=== PATIENT | female | born 1965 | race Caucasian/White ===

== ENCOUNTER → 2020-11-07 | Outpatient (CLI) | payer OTHER ==
[~2020-11-07] MED LIST: CALCIUM ACETAT667 MG; CHOL10002; CRINONE1.125 GM; Dhea Tablet1 EACH PO; FISH1000; MAGOXI400; Multiple Vitam1 EAC1; PHYTOMULTI TAB1 EACH; PROBIOTIC1 EAC1; Premarin0.3 MG; Synthroid25 MCG PO; THYR60 PO; Vitamin B Comple1 EA; Vitamin E100 UNIT
== END | disposition home or self-care (01) ==
LOC: LAB 17:00 → LAB SHORT 17:00
DX: R30.0 Dysuria (principal)
CPT/HCPCS: 87077; 87086; 87186

== ENCOUNTER 2022-03-03 12:22 | Day surgery (SDC) | payer OTHER ==
[~2022-03-03] VITALS: Ht 157.5 cm; Wt 65.2 kg
== END 2022-03-03 14:35 | disposition home or self-care (01) ==
LOC: ORSCSDS 12:22
PROVIDERS: Surgery
PROC: 0DBN8ZX Excision of Sigmoid Colon, Via Natural or Artificial Opening Endoscopic, Diagnostic (ICD-10-PCS; principal; 2022-03-03 13:30)
DX: Z12.11 Encounter for screening for malignant neoplasm of colon (principal); Z86.010 Personal history of colon polyps; D12.5 Benign neoplasm of sigmoid colon; J45.909 Unspecified asthma, uncomplicated; F41.9 Anxiety disorder, unspecified; E07.9 Disorder of thyroid, unspecified; Z79.899 Other long term (current) drug therapy
CPT/HCPCS: 88305; J2704; J7120